=== PATIENT | female | born 1950 | race African-American/Black ===

== ENCOUNTER 2019-08-15 08:00 | Observation (INO) | payer MEDICARE, OTHER ==
--- NOTE | 2019-08-15 08:42 | RAD ---
EXAM: Single view of the chest HISTORY: Difficulty breathing COMPARISON: None FINDINGS: Single view of the chest shows a normal sized cardiomediastinal silhouette. There is no hailey dence of consolidation, mass, or pleural effusion. Degenerative changes are seen in the spine. IMPRESSION: No evidence of acute cardiopulmonary disease
[2019-08-15] MEDS ORDERED: Acetaminophen 500 MG TAB ONE (08:43)
[2019-08-15 08:49] LABS: #Eosinphils 0.2 thou/uL (0.0-0.7); #Lymphocytes 3.7 thou/uL (1.20-3.40); #Monocytes 0.7 thou/uL (0.11-0.59); #Neutrophils 5.5 thou/uL (1.40-6.50); %Basophils 0.5 % (0.0-1.0); %Lymphocytes 36.4 % (21.0-51.0); %Monocytes 6.8 % (0.0-10.0); %Neutrophils 54.3 % (42.0-75.0); Mean Corpuscular HGB CONC 32.3 g/dL (32.0-36.0); Mean Corpuscular Hemoglobin 27.3 pg (27.0-31.0); Mean Corpuscular Volume 84.6 fL (78.0-98.0); Mean Platelet Volume 7.3 fL (7.4-10.4); Platelet Count 234 thou/uL (130-400); RBC Distribution Width 13.3 % (11.5-14.5); Red Blood Cell (RBC) Count 4.76 mill/uL (4.20-5.40); White Blood Cell (WBC) Count 10.1 thou/uL (4.8-10.8)
[2019-08-15 09:05] LABS: ALT (SGPT) 18 U/L (8-55); AST (SGOT) 18 U/L (5-34); Alkaline Phosphatase 53 U/L (40-110); Anion Gap 16 mmol/L (10-20); BUN (Urea Nitrogen) 10 mg/dL (9.8-20.1); Bilirubin, Total 0.5 mg/dL (0.2-1.2); Calc. Creatinine Clearance 0 mL/min (70-130); Calcium 9.4 mg/dL (7.8-10.44); Carbon Dioxide 26 mmol/L (23-31); Chloride 104 mmol/L (98-107); Estimated GFR-MDRD 87; Globulin 2.8 g/dL (2.4-3.5); Glucose 150 mg/dL (80-115); Lipase 17 U/L (8-78); Magnesium 1.5 mg/dL (1.6-2.6); Potassium 4.6 mmol/L (3.5-5.1); Protein, Total 6.8 g/dL (6.0-8.3); Sodium 141 mmol/L (136-145)
--- NOTE | 2019-08-15 09:28 | ULT ---
LEFT LOWER EXTREMITY VENOUS DUPLEX EXAM: INDICATION: Left lower extremity pain and edema. FINDINGS: The veins of the left lower extremity were evaluated with ultrasound and Doppler. Color Doppler, spec tral analysis, and compression studies performed. FINDINGS: The common femoral veins show normal flow and compression. The femoral vein throughout the thigh shows evidence of flow with color Doppler. This vein does not compress. There is no evidence of thrombus identified within the vein. The lack of compressibility would suggest phlebitis. The popliteal vein shows normal flow and compression. The posterior tibial vein shows normal flow an d compression. IMPRESSION: Femoral vein shows no evidence of compression and there is tenderness. No thrombus identified and fl ow is confirmed. The findings would indicate phlebitis involving the femoral vein without thrombus. Findings were related to Dana Chaudhary at the time of dictation. CODE CR POS: TAMMY
[2019-08-15 10:20] LABS: INR-International Normal Ratio 1.1; PTT 24.4 SEC (22.9-36.1); Prothrombin Time 14.2 SEC (12.0-14.7)
[2019-08-15 10:21] LABS: D-Dimer Test 0.28 *mcg/mL (0.27-0.43)
[2019-08-15] MEDS ORDERED: Iopamidol-370 76% 500 ML 1 ML ONE (11:04)
--- NOTE | 2019-08-15 11:18 | CT ---
CTA chest with contrast: Multiple axial tomograms obtained through the chest following a pulmonary angiogram protocol with mul tiplanar reconstruction and 3-D postprocessing. INDICATIONS: Dyspnea and chest pain. Assess for pulmonary embolus. COMPARISON: None FINDINGS: Pulmonary arteries show adequate opacification. No evidence of pulmonary embolus identified. Thoracic aorta is unremarkable. No evidence of dissection. Mediastinum appears unremarkable. No adenopathy. Lung spears appear clear. No evidence of infiltrate or effusion. Small calcified granuloma left mid l jaron measuring approximately 3 mm. Mild basilar atelectasis. Images through upper abdomen reveal a left adrenal nodule measuring up to 1.4 cm AP dimension. This i s indeterminate on this single phase study. Small cyst in the left lobe of liver. Soft tissues of the thorax appear unremarkable. Osseous structures show degenerative changes in the spine. Vertebral bodies maintain height and align ment. IMPRESSION: 1. No evidence of pulmonary embolus 2. No acute lung process. 3. Left adrenal nodule. Indeterminate. Recommend follow-up elective CT abdomen with and without contr ast following adrenal protocol.
[2019-08-15] MEDS ORDERED: Apixaban 5 MG TAB PO SCH (13:30)
[2019-08-15 13:46] LABS: Troponin I Less than 0.010 ng/mL (< 0.028)
[2019-08-15 14:25] VITALS: BMI 43.5
[2019-08-15] MEDS ORDERED: Acetaminophen 325 MG TAB PO PRN (14:31)
[2019-08-15] MEDS ORDERED: Ondansetron ODT 4 MG TAB SL PRN (14:31)
[2019-08-15] MEDS ORDERED: Ondansetron PF 4 MG/2 ML Vial IVP PRN (14:31)
[2019-08-15] MEDS ORDERED: Dextrose 50% Abboject 50 ML SYRINGE SLOW IVP PRN (16:11)
[2019-08-15] MEDS ORDERED: HumaLOG 300 UNITS/3 ML VIAL SC PRN (16:11)
[2019-08-15] MEDS ORDERED: Dextrose 5% in Water 1,000 ML IV PRN (16:11)
[2019-08-15] MEDS ORDERED: Nitroglycerin 0.4 MG TAB (25 Tab Bottle) SL PRN (16:12)
[2019-08-15 16:27] LABS: Troponin I Less than 0.010 ng/mL (< 0.028)
[2019-08-15] MEDS ORDERED: Aspirin 325 MG TAB PO SCH (16:30)
--- NOTE | 2019-08-15 18:38 | HP ---
CHIEF COMPLAINT: Left leg pain/chest pain and shortness of breath. HISTORY OF PRESENT ILLNESS: The patient is a 69-year-old female, who is admitted to the hospital for evaluation of her left leg pain and left-sided chest pain. Apparently, she woke up this morning and went to the bathroom, came back and started having some pain in her left thigh, which gradually got worse to the point that she started having some shortness of breath and chest pain. She did not have any vomiting. EMS was called and she was taken to the emergency room for further evaluation. She is getting admitted for further evaluation of her left thigh pain and chest pain. At the time of my visit, she does not have any pain anywhere. She does not feel short of breath. She denies any cough, fever, or chills. She denies any palpitations. Her primary care physician is Dr. Ajay Robles. Surrogate decision maker is her , Destini Selby. PAST MEDICAL HISTORY: Positive for; 1. Fibromyalgia. 2. Diabetes mellitus type 2. 3. Hyperlipidemia. 4. Hypertension. 5. Ruptured discs and pinched nerve. PAST SURGICAL HISTORY: 1. Hemorrhoids. 2. Hysterectomy. SOCIAL HISTORY: She does not have any history of alcohol intake, cigarette smoking, or illicit drug use. ALLERGIES: NONE. MEDICATIONS: 1. Metformin 500 mg tablets 2 tablets at bedtime. 2. Spironolactone, she does not know the dose. 3. Statin, she does not know the dose and name. FAMILY HISTORY: Mother at the age of 77, she had diabetes and hypertension. Father at the age of 77 and he was an alcoholic. REVIEW OF SYSTEMS: All 14 systems were reviewed and only positive findings were mentioned in HPI, otherwise negative. PHYSICAL EXAMINATION: GENERAL: She is not in any distress during my visit. VITAL SIGNS: Blood pressure is 138/59, pulse is 89, temperature is 97.8, respirations 16, O2 saturation is 96% on room air. HEENT: Head is atraumatic and normocephalic. She is morbidly obese with BMI of 43.6. Her eyes are PERRLA. Sclerae are nonicteric. Oral mucosa is moist. NECK: Supple. LUNGS: Clear. HEART: S1, S2 normal. No S3. No S4. ABDOMEN: Soft and nontender. Bowel sounds are present. No organomegaly. EXTREMITIES: No clubbing, cyanosis, or edema. She does not have any pain to palpation to her left thigh the area where she had pain before. NEUROLOGIC: She is alert and oriented x4. There is no any motor or sensory deficits present. Cranial nerves are intact. LABORATORY DATA: Showed normal CBC. Normal INR 1.1. PT of 14.2, APTT 24.4. D-dimer is 0.28. Normal electrolytes. Normal kidney function. Glucose 150, magnesium 1.5. Two sets of troponin I showed 0.016 and 0.010. The rest of chemistry within normal limits. Lipase within normal limits. IMAGING STUDIES: Chest x-ray personally reviewed by me showed no acute cardiopulmonary process. A vascular ultrasound of the lower extremities of the venous system showed femoral vein, no evidence of compression and no thrombus was identified, and the flow was confirmed. The findings suggestive of phlebitis involving the femoral vein without thrombus. CT angiogram of the chest did not show any PE. No acute lung problem and left adrenal nodule. Radiologist recommended to do followup elective CT of the abdomen with and without contrast following adrenal protocol. Electrocardiogram was done and it showed normal sinus rhythm without any ischemic changes or abnormalities. IMPRESSION: 1. Left leg pain, which is confirmed with ultrasound of the left lower extremity as phlebitis. The patient received apixaban in the emergency room 10 mg orally and Tylenol. 2. Chest pain of unclear etiology at this point to rule out acute coronary syndrome. Two sets of troponins within normal limits so far. We will obtain echo and Lexiscan to further differentiate the etiology of this process. The patient is not in any pain at this moment. 3. Diabetes mellitus type 2. 4. Hypertension. 5. Hyperlipidemia. 6. Fibromyalgia. PLAN: Admission for observation. Condition is fair. Activity is bedrest and bathroom privileges. IV Hep-Lock, 2000 calories ADA diet, sliding scale for Accu-Cheks a.c. and at bedtime, mild sliding scale. Continue home medications which is spironolactone, statin, and metformin. Echocardiogram and Lexiscan tomorrow morning. DVT prophylaxis with 40 mg of Lovenox subcutaneously daily, aspirin 325 mg daily, and additional set of troponin I. Job ID: [id number]
[2019-08-16] MEDS ORDERED: Enoxaparin Sodium 40 MG/0.4 ML SYRINGE SC SCH (09:00)
[2019-08-16] MEDS ORDERED: Aspirin 325 MG TAB PO SCH (09:00)
[2019-08-16] MEDS ORDERED: Regadenoson 0.4 MG/5 ML SYRINGE ONE (10:23)
--- NOTE | 2019-08-16 11:45 | NM ---
STRESS ONLY MYOCARDIAL PERFUSION SCAN: INDICATIONS: Chest pain. TECHNIQUE: The patient was given 30 millicuries of technetium labeled sestamibi for stress only exam. The left ventricle is imaged with SPECT imaging. Attenuation correction images are obtained. The patient was stressed according to Lexiscan protocol. FINDINGS: Loss of activity in the apex on non-attenuation images shows correction on attenuation correction. No evidence of defect. Wall motion ejection fraction within the normal range. IMPRESSION: Negative stress only sestamibi stress test. POS: TAMMY
[2019-08-16 11:48] VITALS: BP 127/79; TEMP 98.6
[2019-08-16] MEDS ORDERED: Magnesium Oxide 400 MG TAB PO SCH ×2 (12:45→21:00)
[2019-08-16] MEDS ORDERED: Prevnar 13-Val Conj/PF 0.5 ML SYRINGE IM ONE (15:00)
--- NOTE | 2019-08-17 03:42 | DIS ---
DATE OF ADMISSION: 08/15/2019 DATE OF DISCHARGE: 08/16/2019 FINAL DIAGNOSES AT THE TIME OF DISCHARGE: 1. Chest pain, acute coronary syndrome was ruled out. 2. Left leg pain secondary to phlebitis of the left femoral vein. 3. Morbid obesity. 4. Diabetes mellitus. 5. Fibromyalgia. 6. Hyperlipidemia. 7. Hypertension. 8. History of ruptured disks and pinched nerve. HOSPITAL COURSE: The patient is a 69-year-old female, who was admitted to the hospital with left leg pain/chest pain and shortness of breath. Apparently, she woke up in the morning yesterday and went to the bathroom and all of a sudden, she started having some pain in the left thigh area, which gradually got worse to the point that she started having some shortness of breath and chest pain, and the EMS was called. She was taken to the emergency room for further evaluation. In the emergency room, ultrasound and Doppler of the left thigh showed femoral vein phlebitis. She denied any cough, fever, or chills. She denied any palpitations. Her primary care physician is Dr. Ajay Robles. Her white count was normal. She had an INR of 1.1, PT of 14.2, APTT 24.4. D-dimer is 0.28. Normal electrolytes. Normal kidney function. Glucose 150, magnesium 1.5. Two sets of troponins I showed 0.016 and 0.010. The rest of chemistry was within normal limits. Lipase was within normal limits. Chest x-ray showed no acute cardiopulmonary process and CT angiogram of the chest did not show any PE. There was left adrenal nodule on the CT angiogram and radiologist recommended to do followup elective CT of the abdomen with and without contrast following adrenal protocol. Electrocardiogram was done and it showed normal sinus rhythm without any ischemic changes or any other abnormalities. The patient was started on apixaban in the emergency room. She was admitted to the hospital for further evaluation. She was placed on ADA diet. She underwent stress test Lexiscan, which is negative; stress test, which was only sestamibi stress test. Also, she underwent echocardiogram which showed LVEF estimated at 55% to 60%, and possible diastolic dysfunction, mild dilatation, mild mitral regurgitation, and trace of mild tricuspid regurgitation, and normal pulmonic artery pressure. She is doing well. She does not have any pain anymore except for the left thigh, which is very residual pain, very mild. She was given aspirin 325 mg daily for left femoral vein phlebitis. There was no any clot on the DVT ultrasound and Doppler of the lower extremities. Her blood pressure is 127/79, pulse is 79, temperature is 98.6, respirations 18, O2 saturations 99% on room air. She is discharged home with recommendation to stay on 2000-calories ADA diet. ACTIVITIES: As tolerated. FOLLOWUP: She is going to follow up with Dr. Robles in 1 week and she understands that she needs to have a followup CT of the abdomen with an adrenal protocol to evaluate her nodule of the left adrenal gland. Job ID: [id number]
== END 2019-08-16 15:29 | disposition home or self-care (01) ==
LOC: ERS 08:00 → 2SW 12:51
PROVIDERS: ADMIT Internal Medicine; ATTEND Internal Medicine
DX: I80.12 Phlebitis and thrombophlebitis of left femoral vein (principal); R07.9 Chest pain, unspecified; R06.02 Shortness of breath; M79.7 Fibromyalgia; E11.9 Type 2 diabetes mellitus without complications; E78.5 Hyperlipidemia, unspecified; I10 Essential (primary) hypertension; E27.8 Other specified disorders of adrenal gland; E66.01 Morbid (severe) obesity due to excess calories; Z68.41 Body mass index [BMI] 40.0-44.9, adult; Z79.84 Long term (current) use of oral hypoglycemic drugs; Z79.899 Other long term (current) drug therapy
CPT/HCPCS: 71045; 71275; 78452; 80053; 82962 ×2; 83690; 83735; 84484 ×2; 85025; 85379; 85610; 85730; 93005; 93017; 93306; 93971; 94760; 99285; A9500; 36415; 36416; G0378; J2785; Q9967